=== PATIENT | male | born 1970 | race Caucasian/White ===

== ENCOUNTER 2016-12-29 15:36 | Inpatient (IN) | payer MEDICAID ==
[2016-12-29] MEDS ORDERED: Ondansetron 4 MG/2 ML SDV IV PRN (16:00)
[2016-12-29] MEDS ORDERED: Midazolam 1 MG/ML 2 ML SDV IVPUSH ONE (16:08)
[2016-12-29] MEDS: Morphine 2 MG/ML Syringe IVPUSH PRN ×2 (16:57→17:11)
[2016-12-29] MEDS ORDERED: Morphine 2 MG/ML Syringe IVPUSH ONE (17:10)
[2016-12-29] MEDS: Sodium Chloride 0.9% 10 ML Syringe FLUSH PRN ×3 (17:15→18:00)
--- NOTE | 2016-12-29 17:16 | PCM.OPNOTE ---
- General Post-Op/Procedure Note Date of Surgery/Procedure: 12/29/16 Operative Procedure(s): chest tube insertion right side Findings: 32 fr chest tube inserted without difficulty Pre Op Diagnosis: spontaneous pneumothorax right Post-Op Diagnosis: Same Anesthesia Technique: Local (10 ml 1 % lido with epi) Primary Surgeon: Shashi Keller Complications: None Condition: Good Free Text/Narrative:: see dictation #[id number]
[2016-12-29] MEDS: Ketorolac 30 MG/ML SDV IVPUSH SCH (17:32)
[2016-12-29] MEDS: HYDROmorphone 2 MG/ML SDV IVPUSH PRN ×2 (17:58→21:18)
[2016-12-30] MEDS: Ketorolac 30 MG/ML SDV IVPUSH SCH ×2 (00:44→10:38)
[2016-12-30] MEDS: Sodium Chloride 0.9% 10 ML Syringe FLUSH PRN ×6 (00:47→16:58)
--- NOTE | 2016-12-30 01:14 | PREOP ---
ADMISSION DATE: 12/29/2016 CHIEF COMPLAINT: Some chest discomfort on the right side. HISTORY OF PRESENT ILLNESS: This is a 46-year-old white male who developed some chest discomfort on the right side about a week ago, has had some shortness of breath as he feels like he has been jogging to the car to get things at lunchtime. He states that the pain is in the chest and does have some pain in the back as well, feels like he cannot quite get his breath. Denies any fever, chills, or coughing. On workup in the clinic today, he was noted to have a pneumothorax on the right side with collapse of at least 50%. He is being admitted for chest tube placement and expansion of the lung. SOCIAL HISTORY: The patient is , has five sons, and is employed. He denies any smoking or drinking history. PAST MEDICAL HISTORY: Significant only for hernia repair. MEDICATIONS: He is on no medications. ALLERGIES: He has no known drug allergies. REVIEW OF SYSTEMS: CONSTITUTIONAL: Negative. HEENT: Negative. CHEST: Positive for shortness of breath and some chest discomfort. ABDOMEN: Negative. NEUROLOGIC and SKIN: Negative. PHYSICAL EXAMINATION: GENERAL: This is a well-developed and well-nourished white male, appearing in no acute distress. HEENT: Reveals him to be normocephalic and atraumatic. Pupils are equal and reactive. Oropharynx is clear. LUNGS: Decreased breath sounds on the right especially in the upper field; otherwise, clear to auscultation. HEART: Regular rate and rhythm. ABDOMEN: Soft and nontender. IMAGING DATA: Chest x-ray was reviewed which reveals spontaneous pneumothorax on the right. ASSESSMENT: Spontaneous pneumo. PLAN: Chest tube placement. Procedure and risks explained to the patient, to include bleeding, infection, need for further surgical intervention as well as additional chest tube placement. The patient expresses understanding and he asked us to proceed. /[id number] /MODL
--- NOTE | 2016-12-30 02:28 | OR ---
DATE OF OPERATION: 12/29/2016 SURGEON: Shashi Keller MD PROCEDURE PERFORMED: Right chest tube insertion. PREOPERATIVE DIAGNOSIS: Right spontaneous pneumothorax. POSTOPERATIVE DIAGNOSIS: Right spontaneous pneumothorax. INDICATIONS FOR PROCEDURE: This is a 46-year-old white male, who presented to the clinic earlier today with complaint of some chest discomfort. Subsequent workup revealed approximately 50% of spontaneous pneumothorax. The patient was admitted and a chest tube is to be inserted. DESCRIPTION OF OPERATION: After approximately 1 mg of Versed and 2 mg of morphine were administered, he was prepped and draped in usual sterile manner a spot in the 4th intercostal space just lateral to the right nipple was identified. This was infiltrated with 10 mL with 1% lidocaine with epinephrine. A small incision was then made and the chest was entered both of the rib. After digital palpation to insure that there was no adhesions, a 32-Wolof chest tube was inserted and then sutured into place. The system was hooked up to 20 cm of water suction. The patient reports breathing much easier after the chest tube was placed and tolerated the procedure well. /[id number] /MODL
[2016-12-30] MEDS: Acetaminophen 325 MG Tab PO PRN (04:49)
[2016-12-30] MEDS: HYDROmorphone 2 MG/ML SDV IVPUSH PRN ×2 (05:43→15:55)
--- NOTE | 2016-12-30 10:20 | PCM.SURGPN ---
- General Info Date of Service: 12/30/16 Date of Surgery/Procedure: 12/29/16 POD#: 1 Functional Status: Reports: pain controlled, urinating, other - Review of Systems Pulmonary: Reports: other (some chest pain but is better ). Denies: shortness of breath Gastrointestinal: Reports: Nausea, Vomiting (feels is due to his pain medication ) - Patient Data Vitals - most recent: Last Vital Signs Temp 36.7 C 12/30/16 04:00 Pulse 68 12/30/16 04:00 Resp 18 12/30/16 04:00 BP 134/81 12/30/16 04:00 Pulse Ox 99 12/30/16 04:00 Weight - most recent: 80.785 kg I&O - last 24 hours: Intake & Output 12/29/16 12/30/16 12/30/16 22:59 06:59 14:59 Intake Total 575 700 Output Total 405 1020 Balance 170 -320 Med Orders - Current: Current Medications Acetaminophen (Tylenol) 650 mg PO Q4H PRN PRN Reason: Headache Last Admin: 12/30/16 04:49 Dose: 650 mg Hydromorphone HCl (Dilaudid) 2 mg IVPUSH Q3H PRN PRN Reason: Pain Last Admin: 12/30/16 05:43 Dose: 2 mg Ketorolac Tromethamine (Toradol) 30 mg IVPUSH Q8H [facility] Stop: 01/03/17 17:11 Last Admin: 12/30/16 00:44 Dose: 30 mg Ondansetron HCl (Zofran) 4 mg IV Q6H PRN PRN Reason: Nausea/Vomiting Sodium Chloride (Saline Flush) 10 ml FLUSH ASDIRECTED PRN PRN Reason: Keep Vein Open Last Admin: 12/30/16 08:05 Dose: 10 ml Discontinued Medications Midazolam HCl (Versed 1 Mg/Ml) 1 mg IVPUSH ONETIME ONE Stop: 12/29/16 16:09 Last Admin: 12/29/16 16:51 Dose: 1 mg Morphine Sulfate (Morphine) 2 mg IVPUSH Q2H PRN PRN Reason: Pain (severe 7-10) Last Admin: 12/29/16 17:11 Dose: 2 mg Morphine Sulfate (Morphine) 2 mg IVPUSH ONETIME ONE Stop: 12/29/16 17:11 Last Admin: 12/29/16 17:29 Dose: Not Given - Exam Wound/Incisions: dressing dry and intact General: alert, oriented, no acute distress Lungs: Clear to auscultation, Normal respiratory effort Cardiovascular: regular rate, regular rhythm - Problem List & Annotations (1) Spontaneous pneumothorax SNOMED Code(s): 96741959 Code(s): J93.83 - OTHER PNEUMOTHORAX Status: Acute Current Visit: Yes - Problem List Review Problem List Initiated/Reviewed/Updated: Yes - My Orders Last 24 Hours: Active Orders 24 hr Category Date Time Status Patient Status [ADT] Routine ADT 12/29/16 15:55 Active Chest Tube Management [RC] Q2H Care 12/29/16 17:12 Active IS (RT) [RT Incentive Spirometry] [RC] ASDIRECTED Care 12/30/16 08:30 Active Notify Provider Vital Signs [RC] ASDIRECTED Care 12/29/16 16:00 Active Oxygen Therapy [RC] CONTINUOUS Care 12/29/16 16:00 Active Up With Assistance [RC] ASDIRECTED Care 12/29/16 16:00 Active Vital Signs [RC] 04,08,12,16,20,00 Care 12/29/16 16:00 Active Regular Diet [DIET] Diet 12/29/16 Dinner Active CXR [Chest 1V Frontal] [CR] AM Exams 12/30/16 05:11 Taken Chest 1V Frontal [CR] Routine Exams 12/29/16 16:00 Taken Acetaminophen [Tylenol] Med 12/30/16 04:35 Active 650 mg PO Q4H PRN HYDROmorphone [Dilaudid] Med 12/29/16 17:26 Active 2 mg IVPUSH Q3H PRN Ketorolac [Toradol] Med 12/29/16 17:15 Active 30 mg IVPUSH Q8H Ondansetron [Zofran] Med 12/29/16 16:00 Active 4 mg IV Q6H PRN Sodium Chloride 0.9% [Saline Flush] Med 12/29/16 15:48 Active 10 ml FLUSH ASDIRECTED PRN Saline Lock Insert [OM.PC] Routine Oth 12/29/16 15:48 Ordered Sequential Compression Device [OM.PC] Per Unit Routine Oth 12/29/16 16:01 Ordered Resuscitation Status Routine Resus Stat 12/29/16 16:00 Ordered Medication Orders Acetaminophen (Tylenol) 650 mg PO Q4H PRN PRN Reason: Headache Last Admin: 12/30/16 04:49 Dose: 650 mg Hydromorphone HCl (Dilaudid) 2 mg IVPUSH Q3H PRN PRN Reason: Pain Last Admin: 12/30/16 05:43 Dose: 2 mg Admin: 12/29/16 21:18 Dose: 2 mg Admin: 12/29/16 17:58 Dose: 2 mg Ketorolac Tromethamine (Toradol) 30 mg IVPUSH Q8H [facility] Stop: 01/03/17 17:11 Last Admin: 12/30/16 00:44 Dose: 30 mg Admin: 12/29/16 17:32 Dose: 30 mg Ondansetron HCl (Zofran) 4 mg IV Q6H PRN PRN Reason: Nausea/Vomiting Sodium Chloride (Saline Flush) 10 ml FLUSH ASDIRECTED PRN PRN Reason: Keep Vein Open Last Admin: 12/30/16 08:05 Dose: 10 ml Admin: 12/30/16 05:44 Dose: 10 ml Admin: 12/30/16 00:47 Dose: 10 ml Admin: 12/29/16 18:00 Dose: 10 ml Admin: 12/29/16 17:33 Dose: 10 ml Admin: 12/29/16 17:15 Dose: 10 ml - Assessment Assessment (Free Text/Narrative):: Lung is up small air leak - Plan Plan (Free Text/Narrative):: Will increase suction to 40 cm of water continue current rx.
[2016-12-30] MEDS ORDERED: traMADol 50 MG Tab PO PRN ×2 (12:23→12:25)
--- NOTE | 2016-12-30 17:05 | CR ---
INDICATION: Chest tube insertion for pneumothorax on the right. CHEST: A single AP upright portable view of the chest was obtained revealing a chest tube on the right with almost complete reexpansion of the right lung. A small residual pneumothorax is suggested, but not well seen. There may be some pleural fibrosis. Some atelectatic change in the right upper lobe remains present. The left lung and pleural space were unremarkable, as previously. Relatively poor inspiration is noted to evaluate the pneumothorax to better advantage. IMPRESSION: Almost complete reexpansion of the right lung after chest tube insertion on the right. Some residual atelectasis and pneumothorax is suggested. Pneumothorax residual is minimal MTDD
--- NOTE | 2016-12-30 17:07 | CR ---
INDICATION: Follow-up pneumothorax. CHEST: Portable AP upright view of the chest 12/30/2016 was compared with 05/2017 examinations x2. There is noted a minimal residual pneumothorax on the right of approximately 5% with chest tube remaining in place. The appearance of atelectasis of a portion of the right upper lobe has resolved. At the left lower lung field, especially the left lung base, there are increased markings which may represent atelectasis. A linear density compatible with linear atelectasis is suggested in the left lower lobe specifically. Some congestion of the left lung may be present. The heart did not appear enlarged allowing for the portable AP positioning and poor inspiration. The poor inspiration is utilized to better visualize pneumothorax. IMPRESSION: 1. Residual 5% pneumothorax on the right. Lung otherwise well expanded on the right with right chest tube remaining in place. 2. Resolution of atelectatic changes in the right upper lobe. 3. Appearance of pulmonary vascular congestion left mid to lower lung field, possibly with some atelectasis at the left lower lobe. With next re-examination , would suggest a full inspiration PA and lateral view of the chest with a PA expiration view also. MTDD
--- NOTE | 2016-12-30 17:43 | PCM.SURGPN ---
- General Info Date of Service: 12/30/16 - Review of Systems Gastrointestinal: Reports: Nausea, Vomiting (has had several episodes during the day. ) - Patient Data Vitals - most recent: Last Vital Signs Temp 36.6 C 12/30/16 16:00 Pulse 71 12/30/16 16:00 Resp 16 12/30/16 16:00 BP 119/75 12/30/16 16:00 Pulse Ox 95 12/30/16 16:00 Weight - most recent: 80.785 kg I&O - last 24 hours: Intake & Output 12/30/16 12/30/16 12/30/16 06:59 14:59 22:59 Intake Total 700 Output Total 1020 2 Balance -320 -2 Med Orders - Current: Current Medications Acetaminophen (Tylenol) 650 mg PO Q4H PRN PRN Reason: Headache Last Admin: 12/30/16 04:49 Dose: 650 mg Hydromorphone HCl (Dilaudid) 2 mg IVPUSH Q3H PRN PRN Reason: Pain Last Admin: 12/30/16 15:55 Dose: 2 mg Ondansetron HCl (Zofran) 4 mg IV Q6H PRN PRN Reason: Nausea/Vomiting Last Admin: 12/30/16 11:16 Dose: 4 mg Sodium Chloride (Saline Flush) 10 ml FLUSH ASDIRECTED PRN PRN Reason: Keep Vein Open Last Admin: 12/30/16 16:58 Dose: 10 ml Tramadol HCl (Ultram) 50 mg PO Q4H PRN PRN Reason: Pain Last Admin: 12/30/16 14:26 Dose: 50 mg Tramadol HCl (Ultram) 100 mg PO Q4H PRN PRN Reason: Pain Discontinued Medications Ketorolac Tromethamine (Toradol) 30 mg IVPUSH Q8H [facility] Stop: 01/03/17 17:11 Last Admin: 12/30/16 10:38 Dose: 30 mg Midazolam HCl (Versed 1 Mg/Ml) 1 mg IVPUSH ONETIME ONE Stop: 12/29/16 16:09 Last Admin: 12/29/16 16:51 Dose: 1 mg Morphine Sulfate (Morphine) 2 mg IVPUSH Q2H PRN PRN Reason: Pain (severe 7-10) Last Admin: 12/29/16 17:11 Dose: 2 mg Morphine Sulfate (Morphine) 2 mg IVPUSH ONETIME ONE Stop: 12/29/16 17:11 Last Admin: 12/29/16 17:29 Dose: Not Given - Exam Wound/Incisions: dressing dry and intact Lungs: Clear to auscultation, Normal respiratory effort Cardiovascular: regular rate, regular rhythm Abdomen: bowel sounds present, no tenderness, no distension - Problem List & Annotations (1) Spontaneous pneumothorax SNOMED Code(s): 16416223 Code(s): J93.83 - OTHER PNEUMOTHORAX Status: Acute Current Visit: Yes (2) Emesis, persistent SNOMED Code(s): 821612695 Code(s): R11.10 - VOMITING, UNSPECIFIED Status: Acute Current Visit: Yes - Problem List Review Problem List Initiated/Reviewed/Updated: Yes - My Orders Last 24 Hours: Active Orders 24 hr Category Date Time Status Chest Tube Management [RC] Q2H Care 12/29/16 17:12 Active IS (RT) [RT Incentive Spirometry] [RC] ASDIRECTED Care 12/30/16 08:30 Active Acetaminophen [Tylenol] Med 12/30/16 04:35 Active 650 mg PO Q4H PRN HYDROmorphone [Dilaudid] Med 12/29/16 17:26 Active 2 mg IVPUSH Q3H PRN traMADol [Ultram] Med 12/30/16 12:25 Active 100 mg PO Q4H PRN traMADol [Ultram] Med 12/30/16 12:23 Active 50 mg PO Q4H PRN Medication Orders Acetaminophen (Tylenol) 650 mg PO Q4H PRN PRN Reason: Headache Last Admin: 12/30/16 04:49 Dose: 650 mg Hydromorphone HCl (Dilaudid) 2 mg IVPUSH Q3H PRN PRN Reason: Pain Last Admin: 12/30/16 15:55 Dose: 2 mg Admin: 12/30/16 05:43 Dose: 2 mg Admin: 12/29/16 21:18 Dose: 2 mg Admin: 12/29/16 17:58 Dose: 2 mg Ondansetron HCl (Zofran) 4 mg IV Q6H PRN PRN Reason: Nausea/Vomiting Last Admin: 12/30/16 11:16 Dose: 4 mg Sodium Chloride (Saline Flush) 10 ml FLUSH ASDIRECTED PRN PRN Reason: Keep Vein Open Last Admin: 12/30/16 16:58 Dose: 10 ml Admin: 12/30/16 15:56 Dose: 10 ml Admin: 12/30/16 11:20 Dose: 10 ml Admin: 12/30/16 08:05 Dose: 10 ml Admin: 12/30/16 05:44 Dose: 10 ml Admin: 12/30/16 00:47 Dose: 10 ml Admin: 12/29/16 18:00 Dose: 10 ml Admin: 12/29/16 17:33 Dose: 10 ml Admin: 12/29/16 17:15 Dose: 10 ml Tramadol HCl (Ultram) 50 mg PO Q4H PRN PRN Reason: Pain Last Admin: 12/30/16 14:26 Dose: 50 mg Tramadol HCl (Ultram) 100 mg PO Q4H PRN PRN Reason: Pain - Assessment Assessment (Free Text/Narrative):: emesis is most likely from narcs as well as stress. - Plan Plan (Free Text/Narrative):: I am going to make npo tonight. Start a ppi.
[2016-12-30] MEDS ORDERED: Pantoprazole 80 MG in Sodium Chloride 0.9% 100 ML IV ONE (17:46)
[2016-12-30] MEDS: D5 1/2 NS w/ 20 mEq/L KCl 1,000 ML IV SCH (18:08)
[2016-12-30] MEDS: Morphine 2 MG/ML Syringe IVPUSH PRN (20:22)
[2016-12-31] MEDS: Morphine 2 MG/ML Syringe IVPUSH PRN ×9 (00:22→17:38)
[2016-12-31] MEDS: D5 1/2 NS w/ 20 mEq/L KCl 1,000 ML IV SCH ×3 (02:43→19:17)
--- NOTE | 2016-12-31 09:38 | PCM.SURGPN ---
- General Info Date of Service: 12/31/16 POD#: 2 Functional Status: Reports: pain controlled, urinating, incentive spirometry - Review of Systems Pulmonary: Reports: no symptoms Gastrointestinal: Reports: No symptoms. Denies: Abdominal pain, Nausea, Vomiting - Patient Data Vitals - most recent: Last Vital Signs Temp 36.9 C 12/31/16 04:30 Pulse 60 12/31/16 04:30 Resp 18 12/31/16 04:30 BP 126/74 12/31/16 04:30 Pulse Ox 95 12/31/16 04:30 Weight - most recent: 80.785 kg I&O - last 24 hours: Intake & Output 12/30/16 12/31/16 12/31/16 22:59 06:59 14:59 Intake Total 459 932 Output Total 85 1355 Balance 374 -423 Med Orders - Current: Current Medications Acetaminophen (Tylenol) 650 mg PO Q4H PRN PRN Reason: Headache Last Admin: 12/30/16 04:49 Dose: 650 mg Potassium Chloride/Dextrose/Sod Cl (D5 1/2 Ns W/ 20 Meq/L Kcl) 1,000 mls @ 125 mls/hr IV ASDIRECTED [facility] Last Admin: 12/31/16 02:43 Dose: 125 mls/hr Morphine Sulfate (Morphine) 1 mg IVPUSH Q1H PRN PRN Reason: Pain Last Admin: 12/31/16 08:36 Dose: 1 mg Ondansetron HCl (Zofran) 4 mg IV Q6H PRN PRN Reason: Nausea/Vomiting Last Admin: 12/30/16 11:16 Dose: 4 mg Discontinued Medications Hydromorphone HCl (Dilaudid) 2 mg IVPUSH Q3H PRN PRN Reason: Pain Last Admin: 12/30/16 15:55 Dose: 2 mg Pantoprazole Sodium 80 mg/ (Sodium Chloride) 100 mls @ 200 mls/hr IV .BOLUS ONE Stop: 12/30/16 18:15 Last Admin: 12/30/16 18:23 Dose: 200 mls/hr Ketorolac Tromethamine (Toradol) 30 mg IVPUSH Q8H [facility] Stop: 01/03/17 17:11 Last Admin: 12/30/16 10:38 Dose: 30 mg Midazolam HCl (Versed 1 Mg/Ml) 1 mg IVPUSH ONETIME ONE Stop: 12/29/16 16:09 Last Admin: 12/29/16 16:51 Dose: 1 mg Morphine Sulfate (Morphine) 2 mg IVPUSH Q2H PRN PRN Reason: Pain (severe 7-10) Last Admin: 12/29/16 17:11 Dose: 2 mg Morphine Sulfate (Morphine) 2 mg IVPUSH ONETIME ONE Stop: 12/29/16 17:11 Last Admin: 12/29/16 17:29 Dose: Not Given Sodium Chloride (Saline Flush) 10 ml FLUSH ASDIRECTED PRN PRN Reason: Keep Vein Open Last Admin: 12/30/16 16:58 Dose: 10 ml Tramadol HCl (Ultram) 50 mg PO Q4H PRN PRN Reason: Pain Last Admin: 12/30/16 14:26 Dose: 50 mg Tramadol HCl (Ultram) 100 mg PO Q4H PRN PRN Reason: Pain - Exam Wound/Incisions: dressing dry and intact Lungs: Clear to auscultation, Normal respiratory effort Cardiovascular: regular rate, regular rhythm Abdomen: bowel sounds present, soft, no tenderness - Problem List & Annotations (1) Spontaneous pneumothorax SNOMED Code(s): 04768901 Code(s): J93.83 - OTHER PNEUMOTHORAX Status: Acute Current Visit: Yes (2) Emesis, persistent SNOMED Code(s): 583919166 Code(s): R11.10 - VOMITING, UNSPECIFIED Status: Acute Current Visit: Yes - Problem List Review Problem List Initiated/Reviewed/Updated: Yes - My Orders Last 24 Hours: Active Orders 24 hr Category Date Time Status D5 1/2 NS w/ 20 mEq/L KCl 1,000 ml Med 12/30/16 17:45 Active IV ASDIRECTED Morphine Med 12/30/16 17:47 Active 1 mg IVPUSH Q1H PRN Medication Orders Acetaminophen (Tylenol) 650 mg PO Q4H PRN PRN Reason: Headache Last Admin: 12/30/16 04:49 Dose: 650 mg Potassium Chloride/Dextrose/Sod Cl (D5 1/2 Ns W/ 20 Meq/L Kcl) 1,000 mls @ 125 mls/hr IV ASDIRECTED [facility] Last Admin: 12/31/16 02:43 Dose: 125 mls/hr Infusion: 12/31/16 02:08 Dose: 125 mls/hr Admin: 12/30/16 18:08 Dose: 125 mls/hr Morphine Sulfate (Morphine) 1 mg IVPUSH Q1H PRN PRN Reason: Pain Last Admin: 12/31/16 08:36 Dose: 1 mg Admin: 12/31/16 07:02 Dose: 1 mg Admin: 12/31/16 04:45 Dose: 1 mg Admin: 12/31/16 03:03 Dose: 1 mg Admin: 12/31/16 00:22 Dose: 1 mg Admin: 12/30/16 20:22 Dose: 1 mg Ondansetron HCl (Zofran) 4 mg IV Q6H PRN PRN Reason: Nausea/Vomiting Last Admin: 12/30/16 11:16 Dose: 4 mg - Assessment Assessment (Free Text/Narrative):: will change to water seal as he appears to have no air leak and lung sounds are present abd exam is better will allow clears. - Plan Plan (Free Text/Narrative):: ct to water seal clear liquid diet cxr this afternoon
[2017-01-01] MEDS: D5 1/2 NS w/ 20 mEq/L KCl 1,000 ML IV SCH ×2 (02:47→10:58)
[2017-01-01] MEDS: Acetaminophen 325 MG Tab PO PRN (08:48)
[2017-01-01] MEDS: Morphine 2 MG/ML Syringe IVPUSH PRN (09:45)
--- NOTE | 2017-01-01 10:23 | PCM.SURGPN ---
- General Info Date of Service: 01/01/17 Functional Status: Reports: pain controlled, ambulating, urinating, new symptoms - Review of Systems Pulmonary: Reports: no symptoms Cardiovascular: Reports: no symptoms Gastrointestinal: Reports: No symptoms - Patient Data Vitals - most recent: Last Vital Signs Temp 37.1 C 01/01/17 04:00 Pulse 68 01/01/17 04:00 Resp 16 01/01/17 04:00 BP 105/64 01/01/17 04:00 Pulse Ox 97 01/01/17 04:00 Weight - most recent: 80.785 kg I&O - last 24 hours: Intake & Output 12/31/16 01/01/17 01/01/17 22:59 06:59 14:59 Intake Total 2239 1120 220 Output Total 253 432 Balance 1986 688 220 Med Orders - Current: Current Medications Acetaminophen (Tylenol) 650 mg PO Q4H PRN PRN Reason: Headache Last Admin: 01/01/17 08:48 Dose: 650 mg Potassium Chloride/Dextrose/Sod Cl (D5 1/2 Ns W/ 20 Meq/L Kcl) 1,000 mls @ 125 mls/hr IV Q8H [facility] Last Admin: 01/01/17 02:47 Dose: 125 mls/hr Morphine Sulfate (Morphine) 1 mg IVPUSH Q1H PRN PRN Reason: Pain Last Admin: 12/31/16 17:38 Dose: 1 mg Ondansetron HCl (Zofran) 4 mg IV Q6H PRN PRN Reason: Nausea/Vomiting Last Admin: 12/30/16 11:16 Dose: 4 mg Discontinued Medications Hydromorphone HCl (Dilaudid) 2 mg IVPUSH Q3H PRN PRN Reason: Pain Last Admin: 12/30/16 15:55 Dose: 2 mg Potassium Chloride/Dextrose/Sod Cl (D5 1/2 Ns W/ 20 Meq/L Kcl) 1,000 mls @ 125 mls/hr IV ASDIRECTED [facility] Last Admin: 12/31/16 02:43 Dose: 125 mls/hr Pantoprazole Sodium 80 mg/ (Sodium Chloride) 100 mls @ 200 mls/hr IV .BOLUS ONE Stop: 12/30/16 18:15 Last Admin: 12/30/16 18:23 Dose: 200 mls/hr Ketorolac Tromethamine (Toradol) 30 mg IVPUSH Q8H [facility] Stop: 01/03/17 17:11 Last Admin: 12/30/16 10:38 Dose: 30 mg Midazolam HCl (Versed 1 Mg/Ml) 1 mg IVPUSH ONETIME ONE Stop: 12/29/16 16:09 Last Admin: 12/29/16 16:51 Dose: 1 mg Morphine Sulfate (Morphine) 2 mg IVPUSH Q2H PRN PRN Reason: Pain (severe 7-10) Last Admin: 12/29/16 17:11 Dose: 2 mg Morphine Sulfate (Morphine) 2 mg IVPUSH ONETIME ONE Stop: 12/29/16 17:11 Last Admin: 12/29/16 17:29 Dose: Not Given Sodium Chloride (Saline Flush) 10 ml FLUSH ASDIRECTED PRN PRN Reason: Keep Vein Open Last Admin: 12/30/16 16:58 Dose: 10 ml Tramadol HCl (Ultram) 50 mg PO Q4H PRN PRN Reason: Pain Last Admin: 12/30/16 14:26 Dose: 50 mg Tramadol HCl (Ultram) 100 mg PO Q4H PRN PRN Reason: Pain - Exam Wound/Incisions: dressing dry and intact Lungs: Clear to auscultation, Normal respiratory effort, Other (cxr lung up ) Cardiovascular: regular rate, regular rhythm Skin: warm, dry, intact - Problem List & Annotations (1) Spontaneous pneumothorax SNOMED Code(s): 45025719 Code(s): J93.83 - OTHER PNEUMOTHORAX Status: Resolved Current Visit: Yes (2) Emesis, persistent SNOMED Code(s): 042982564 Code(s): R11.10 - VOMITING, UNSPECIFIED Status: Resolved Current Visit: Yes - Problem List Review Problem List Initiated/Reviewed/Updated: Yes - My Orders Last 24 Hours: Active Orders 24 hr Category Date Time Status Clear Liquid Diet [DIET] Diet 12/31/16 Lunch Active CXR [Chest 1V Frontal] [CR] Routine Exams 01/01/17 08:00 Taken CXR [Chest 2V] [CR] Routine Exams 12/31/16 16:30 Taken Chest 1V Frontal [CR] Routine Exams 01/01/17 09:53 Taken D5 1/2 NS w/ 20 mEq/L KCl 1,000 ml Med 12/31/16 10:45 Active IV Q8H Medication Orders Acetaminophen (Tylenol) 650 mg PO Q4H PRN PRN Reason: Headache Last Admin: 01/01/17 08:48 Dose: 650 mg Admin: 12/30/16 04:49 Dose: 650 mg Potassium Chloride/Dextrose/Sod Cl (D5 1/2 Ns W/ 20 Meq/L Kcl) 1,000 mls @ 125 mls/hr IV Q8H [facility] Last Admin: 01/01/17 02:47 Dose: 125 mls/hr Infusion: 01/01/17 02:47 Dose: 125 mls/hr Admin: 12/31/16 19:17 Dose: 125 mls/hr Infusion: 12/31/16 18:40 Dose: 125 mls/hr Admin: 12/31/16 10:40 Dose: 125 mls/hr Morphine Sulfate (Morphine) 1 mg IVPUSH Q1H PRN PRN Reason: Pain Last Admin: 12/31/16 17:38 Dose: 1 mg Admin: 12/31/16 15:20 Dose: 1 mg Admin: 12/31/16 12:53 Dose: 1 mg Admin: 12/31/16 10:27 Dose: 1 mg Admin: 12/31/16 08:36 Dose: 1 mg Admin: 12/31/16 07:02 Dose: 1 mg Admin: 12/31/16 04:45 Dose: 1 mg Admin: 12/31/16 03:03 Dose: 1 mg Admin: 12/31/16 00:22 Dose: 1 mg Admin: 12/30/16 20:22 Dose: 1 mg Ondansetron HCl (Zofran) 4 mg IV Q6H PRN PRN Reason: Nausea/Vomiting Last Admin: 12/30/16 11:16 Dose: 4 mg - Assessment Assessment (Free Text/Narrative):: lung was up and ct was removed post removal demonstrated lung up breath sounds present. - Plan Plan (Free Text/Narrative):: repeat cxr in am if lung up will discharge to home
--- NOTE | 2017-01-02 09:07 | PCM.SURGPN ---
- General Info Date of Service: 01/02/17 Functional Status: Reports: pain controlled, tolerating diet, ambulating, urinating. Denies: new symptoms - Review of Systems Pulmonary: Reports: no symptoms Cardiovascular: Reports: no symptoms Gastrointestinal: Reports: No symptoms - Patient Data Vitals - most recent: Last Vital Signs Temp 36.9 C 01/02/17 00:00 Pulse 75 01/02/17 00:00 Resp 16 01/02/17 00:00 BP 124/78 01/02/17 00:00 Pulse Ox 96 01/02/17 00:00 Weight - most recent: 80.785 kg I&O - last 24 hours: Intake & Output 01/01/17 01/02/17 01/02/17 21:59 06:59 14:59 Intake Total Balance Med Orders - Current: Current Medications Acetaminophen (Tylenol) 650 mg PO Q4H PRN PRN Reason: Headache Last Admin: 01/01/17 08:48 Dose: 650 mg Morphine Sulfate (Morphine) 1 mg IVPUSH Q1H PRN PRN Reason: Pain Last Admin: 01/01/17 09:45 Dose: 1 mg Ondansetron HCl (Zofran) 4 mg IV Q6H PRN PRN Reason: Nausea/Vomiting Last Admin: 12/30/16 11:16 Dose: 4 mg Discontinued Medications Hydromorphone HCl (Dilaudid) 2 mg IVPUSH Q3H PRN PRN Reason: Pain Last Admin: 12/30/16 15:55 Dose: 2 mg Potassium Chloride/Dextrose/Sod Cl (D5 1/2 Ns W/ 20 Meq/L Kcl) 1,000 mls @ 125 mls/hr IV ASDIRECTED [facility] Last Admin: 12/31/16 02:43 Dose: 125 mls/hr Pantoprazole Sodium 80 mg/ (Sodium Chloride) 100 mls @ 200 mls/hr IV .BOLUS ONE Stop: 12/30/16 18:15 Last Admin: 12/30/16 18:23 Dose: 200 mls/hr Potassium Chloride/Dextrose/Sod Cl (D5 1/2 Ns W/ 20 Meq/L Kcl) 1,000 mls @ 125 mls/hr IV Q8H [facility] Last Admin: 01/01/17 10:58 Dose: Not Given Ketorolac Tromethamine (Toradol) 30 mg IVPUSH Q8H [facility] Stop: 01/03/17 17:11 Last Admin: 12/30/16 10:38 Dose: 30 mg Midazolam HCl (Versed 1 Mg/Ml) 1 mg IVPUSH ONETIME ONE Stop: 12/29/16 16:09 Last Admin: 12/29/16 16:51 Dose: 1 mg Morphine Sulfate (Morphine) 2 mg IVPUSH Q2H PRN PRN Reason: Pain (severe 7-10) Last Admin: 12/29/16 17:11 Dose: 2 mg Morphine Sulfate (Morphine) 2 mg IVPUSH ONETIME ONE Stop: 12/29/16 17:11 Last Admin: 12/29/16 17:29 Dose: Not Given Sodium Chloride (Saline Flush) 10 ml FLUSH ASDIRECTED PRN PRN Reason: Keep Vein Open Last Admin: 12/30/16 16:58 Dose: 10 ml Tramadol HCl (Ultram) 50 mg PO Q4H PRN PRN Reason: Pain Last Admin: 12/30/16 14:26 Dose: 50 mg Tramadol HCl (Ultram) 100 mg PO Q4H PRN PRN Reason: Pain - Exam Wound/Incisions: dressing dry and intact Lungs: Clear to auscultation, Normal respiratory effort. No: Decreased breath sounds - Problem List & Annotations (1) Spontaneous pneumothorax SNOMED Code(s): 82669082 Code(s): J93.83 - OTHER PNEUMOTHORAX Status: Resolved Current Visit: Yes (2) Emesis, persistent SNOMED Code(s): 467240827 Code(s): R11.10 - VOMITING, UNSPECIFIED Status: Resolved Current Visit: Yes - Problem List Review Problem List Initiated/Reviewed/Updated: Yes - My Orders Last 24 Hours: Active Orders 24 hr Category Date Time Status Regular Diet [DIET] Diet 01/01/17 Lunch Active CXR [Chest 1V Frontal] [CR] AM Exams 01/02/17 05:11 Ordered CXR [Chest 1V Frontal] [CR] Routine Exams 01/01/17 08:00 Taken Chest 1V Frontal [CR] Routine Exams 01/01/17 09:53 Taken Convert IV to Saline Lock [OM.PC] Routine Oth 01/01/17 10:23 Ordered Medication Orders Acetaminophen (Tylenol) 650 mg PO Q4H PRN PRN Reason: Headache Last Admin: 01/01/17 08:48 Dose: 650 mg Admin: 12/30/16 04:49 Dose: 650 mg Morphine Sulfate (Morphine) 1 mg IVPUSH Q1H PRN PRN Reason: Pain Last Admin: 01/01/17 09:45 Dose: 1 mg Admin: 12/31/16 17:38 Dose: 1 mg Admin: 12/31/16 15:20 Dose: 1 mg Admin: 12/31/16 12:53 Dose: 1 mg Admin: 12/31/16 10:27 Dose: 1 mg Admin: 12/31/16 08:36 Dose: 1 mg Admin: 12/31/16 07:02 Dose: 1 mg Admin: 12/31/16 04:45 Dose: 1 mg Admin: 12/31/16 03:03 Dose: 1 mg Admin: 12/31/16 00:22 Dose: 1 mg Admin: 12/30/16 20:22 Dose: 1 mg Ondansetron HCl (Zofran) 4 mg IV Q6H PRN PRN Reason: Nausea/Vomiting Last Admin: 12/30/16 11:16 Dose: 4 mg - Assessment Assessment (Free Text/Narrative):: clinically doing well - Plan Plan (Free Text/Narrative):: await the am cxr anticipate discharge this am.
--- NOTE | 2017-01-02 09:12 | PCM.DCSUM1 ---
Discharge Summary - Hospital Course Free Text/Narrative:: Pt admitted through the clinic and had a chest tube placed in the right chest. Lung demonstrated good expansion. Placed on water seal on HOD #2 Lung remained expanded and chest tube was removed. cxr on the day of discharge was normal with the lung up - Discharge Data Discharge Date: 01/02/17 Discharge Disposition: Home, Self-Care 01 Condition: Good - Discharge Diagnosis/Problem(s) (1) Spontaneous pneumothorax SNOMED Code(s): 94045536 ICD Code: J93.83 - OTHER PNEUMOTHORAX Status: Resolved Current Visit: Yes (2) Emesis, persistent SNOMED Code(s): 474047515 ICD Code: R11.10 - VOMITING, UNSPECIFIED Status: Resolved Current Visit: Yes - Patient Summary/Data Operative Procedure(s) Performed: chest tube insertion right side - Patient Instructions Diet: Heart Healthy Diet Activity: No Lifting Over 25 Pounds (for 7 days ) Driving: Do Not Drive (for 2 days ) Showering/Bathing: February Shower Wound/Incision, Other: dressing off in am . may shower. cover wound with bandaid Notify Provider of: Fever, Drainage Other/Special Instructions: shortness of breath - Discharge Plan Home Medications: Home Meds Multivitamin [Multivitamins] 1 each PO DAILY 12/29/16 [History] Referrals: Shashi Keller MD [Physician] - 01/10/17 - Discharge Summary/Plan Comment DC Time >30 min.: No Discharge Summary/Plan Comment: Motrin for pain - Patient Data Vitals - Most Recent: Last Vital Signs Temp 36.9 C 01/02/17 00:00 Pulse 75 01/02/17 00:00 Resp 16 01/02/17 00:00 BP 124/78 01/02/17 00:00 Pulse Ox 96 01/02/17 00:00 Weight - Most Recent: 80.785 kg I&O - Last 24 hours: Intake & Output 01/01/17 01/02/17 01/02/17 21:59 06:59 14:59 Intake Total Balance Med Orders - Current: Current Medications Acetaminophen (Tylenol) 650 mg PO Q4H PRN PRN Reason: Headache Last Admin: 01/01/17 08:48 Dose: 650 mg Morphine Sulfate (Morphine) 1 mg IVPUSH Q1H PRN PRN Reason: Pain Last Admin: 01/01/17 09:45 Dose: 1 mg Ondansetron HCl (Zofran) 4 mg IV Q6H PRN PRN Reason: Nausea/Vomiting Last Admin: 12/30/16 11:16 Dose: 4 mg Discontinued Medications Hydromorphone HCl (Dilaudid) 2 mg IVPUSH Q3H PRN PRN Reason: Pain Last Admin: 12/30/16 15:55 Dose: 2 mg Potassium Chloride/Dextrose/Sod Cl (D5 1/2 Ns W/ 20 Meq/L Kcl) 1,000 mls @ 125 mls/hr IV ASDIRECTED [facility] Last Admin: 12/31/16 02:43 Dose: 125 mls/hr Pantoprazole Sodium 80 mg/ (Sodium Chloride) 100 mls @ 200 mls/hr IV .BOLUS ONE Stop: 12/30/16 18:15 Last Admin: 12/30/16 18:23 Dose: 200 mls/hr Potassium Chloride/Dextrose/Sod Cl (D5 1/2 Ns W/ 20 Meq/L Kcl) 1,000 mls @ 125 mls/hr IV Q8H [facility] Last Admin: 01/01/17 10:58 Dose: Not Given Ketorolac Tromethamine (Toradol) 30 mg IVPUSH Q8H [facility] Stop: 01/03/17 17:11 Last Admin: 12/30/16 10:38 Dose: 30 mg Midazolam HCl (Versed 1 Mg/Ml) 1 mg IVPUSH ONETIME ONE Stop: 12/29/16 16:09 Last Admin: 12/29/16 16:51 Dose: 1 mg Morphine Sulfate (Morphine) 2 mg IVPUSH Q2H PRN PRN Reason: Pain (severe 7-10) Last Admin: 12/29/16 17:11 Dose: 2 mg Morphine Sulfate (Morphine) 2 mg IVPUSH ONETIME ONE Stop: 12/29/16 17:11 Last Admin: 12/29/16 17:29 Dose: Not Given Sodium Chloride (Saline Flush) 10 ml FLUSH ASDIRECTED PRN PRN Reason: Keep Vein Open Last Admin: 12/30/16 16:58 Dose: 10 ml Tramadol HCl (Ultram) 50 mg PO Q4H PRN PRN Reason: Pain Last Admin: 12/30/16 14:26 Dose: 50 mg Tramadol HCl (Ultram) 100 mg PO Q4H PRN PRN Reason: Pain *Q Meaningful Use (DIS) - VTE *Q VTE Criteria *Q: - Stroke *Q Stroke Criteria *Q: - AMI *Q AMI Criteria *Q:
[2017-01-02 11:18] VITALS: BP 122/88
--- NOTE | 2017-01-03 08:37 | CR ---
INDICATION: Check lung expansion after being on water seal. CHEST: PA and lateral views of the chest 12/31/2016 were compared with 2016 and 12/29/2016, again revealing a right chest tube in place. A small - 5% pneumothorax remains present and stable, compared with 12/30/2016. A new acute process is not definite, although there is blunting of the posterior sulcus on the right, suggesting some pleural fluid. The appearance could be secondary to fibrosis, however. The heart appeared normal in size and shape. The aorta is only slightly tortuous. IMPRESSION: 1) 5% residual pneumothorax remains present with right chest tube in place. 2) Question small right pleural effusion versus some scarring at the posterior sulcus. 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 MTDD
--- NOTE | 2017-01-03 12:03 | CR ---
INDICATION: Follow-up pneumothorax prior to chest tube removal. CHEST: 01/01/2017 at 0928 hours. A single frontal view of the chest was obtained upright, apparently PA, with a chest tube remaining in place on the right. A residual 5-10% pneumothorax remains present and appears unchanged from the previous examination. No significant change or new acute process was identified. Findings compatible with COPD are again noted. The heart remains normal in size and shape. IMPRESSION: Stable chest, no new acute process. Small pneumothorax remains present on the right with right chest tube in place. MTDD
--- NOTE | 2017-01-03 12:07 | CR ---
INDICATION: Post-chest tube removal. Follow-up pneumothorax. CHEST: A single frontal view of the chest was obtained after right chest tube removal and shows no change in the minimal pneumothorax seen previously. No new acute process was identified. MTDD
--- NOTE | 2017-01-03 12:10 | CR ---
INDICATION: Recheck lung expansion post chest tube removal. CHEST: (01/02/2017) PA view of the chest was obtained and revealed a tiny residual pneumothorax on the right. No new acute process was identified. The size of the pneumothorax on the right may be slightly decreased compared with the previous study. However, a better inspiration is also suggested, which would diminish the appearance of the pneumothorax. IMPRESSION: Stable chest. No new acute process. Very minimal residual pneumothorax on the right post right chest tube removal. MTDD
== END 2017-01-02 12:35 | disposition home or self-care (01) | DRG 201 ==
LOC: FB.MS 15:52
PROVIDERS: ADMIT Surgery; ATTEND Family Medicine
PROC: 0W9930Z Drainage of Right Pleural Cavity with Drainage Device, Percutaneous Approach (ICD-10-PCS; principal; 2016-12-29)
DX: J93.83 Other pneumothorax (principal); R11.10 Vomiting, unspecified
CPT/HCPCS: 32551; 71010; 71020; 94150; A9270-GY; C9113; J1170; J1885; J2250; J2270; J2405; J3480; J7030; J7050

== ENCOUNTER 2017-12-14 06:36 | Observation (INO) | payer MEDICAID ==
--- NOTE | 2017-12-14 07:48 | EDM.PDOC ---
ED HPI GENERAL MEDICAL PROBLEM - General Chief Complaint: Respiratory Problem Stated Complaint: back and right anterior chest discomfort Time Seen by Provider: 12/14/17 06:50 Source of Information: Reports: Patient History Limitations: Reports: No Limitations - History of Present Illness INITIAL COMMENTS - FREE TEXT/NARRATIVE: 46 y.o.w.m came to the ed by himself due to sudden onset of left sided chest discomfort while at work. Pt has a pneumothorax 1 year ago when a chest tube was placed. Pt was admitted for 3 days at that time. Pt quit smoking 18 years ago, his cousin had similar symptoms. No N/V/D or any other acute medical issues. BP 125/79 RR 20 Pulse ox 99% on RA Temp 37.4 Onset: Today Onset Date: 12/14/17 Onset Time: 07:00 Duration: Intermittent Location: Reports: Chest Quality: Reports: Ache Severity: Mild Improves with: Reports: Rest Worsens with: Reports: Movement Context: Reports: Other (spontaneous) Associated Symptoms: Reports: No Other Symptoms Back Pain Score (Numeric/FACES): 2 - Related Data Allergies Allergy/AdvReac Type Severity Reaction Status Date / Time No Known Allergies Allergy Verified 12/14/17 07:43 Home Meds: Home Meds Multivitamin [Multivitamins] 1 each PO DAILY 12/29/16 [History] Past Medical History Dermatologic History: Reports: Eczema - Infectious Disease History Infectious Disease History: Reports: Mononucleosis - Past Surgical History Respiratory Surgical History: Reports: Other (See Below) Other Respiratory Surgeries/Procedures: Past history of chest tube placement. Neurological Surgical History: Reports: Other (See Below) Other Neurological Surgeries/Procedures: Past history of head surgery after being kicked by a horse. Social & Family History - Family History Family Medical History: Noncontributory - Tobacco Use Smoking Status *Q: Former Smoker Years of Tobacco use: 10 Used Tobacco, but Quit: No Second Hand Smoke Exposure: No - Caffeine Use Caffeine Use: Reports: Coffee Other Caffeine Use: daily cup - Recreational Drug Use Recreational Drug Use: No ED ROS GENERAL - Review of Systems Review Of Systems: See Below Constitutional: Reports: No Symptoms HEENT: Reports: No Symptoms Respiratory: Reports: No Symptoms Cardiovascular: Reports: Chest Pain (minimal) Endocrine: Reports: No Symptoms GI/Abdominal: Reports: No Symptoms : Reports: No Symptoms Musculoskeletal: Reports: No Symptoms Skin: Reports: No Symptoms Neurological: Reports: No Symptoms Psychiatric: Reports: No Symptoms ED EXAM, GENERAL - Physical Exam Exam: See Below Exam Limited By: No Limitations General Appearance: Alert, WD/WN, Mild Distress Eye Exam: Bilateral Eye: Normal Inspection Ears: Normal External Exam Ear Exam: Bilateral Ear: Auricle Normal Nose: Normal Inspection, Normal Mucosa, No Blood Throat/Mouth: Normal Inspection, Normal Lips, Normal Voice, No Airway Compromise Head: Atraumatic, Normocephalic Neck: Normal Inspection, Supple, Non-Tender, Full Range of Motion Respiratory/Chest: No Respiratory Distress, Lungs Clear Cardiovascular: Normal Peripheral Pulses Peripheral Pulses: 1+: Carotid (R) GI/Abdominal: Normal Bowel Sounds, Soft, Non-Tender, No Organomegaly, No Abnormal Bruit (Male) Exam: Deferred Rectal (Males) Exam: Deferred Back Exam: Normal Inspection, Full Range of Motion Extremities: Normal Inspection, Normal Range of Motion, Non-Tender, No Pedal Edema, Normal Capillary Refill Neurological: Alert, Oriented, CN II-XII Intact, Normal Cognition, Normal Gait Psychiatric: Normal Affect, Normal Mood Skin Exam: Warm, Dry, Intact, Normal Color, No Rash Lymphatic: No Adenopathy Course - Vital Signs Text/Narrative:: 46 y.o.w.m came to the ed by himself due to sudden onset of left sided chest discomfort while at work. Pt has a pneumothorax 1 year ago when a chest tube was placed. Pt was admitted for 3 days at that time. Pt quit smoking 18 years ago, his cousin had similar symptoms. No N/V/D or any other acute medical issues. BP 125/79 RR 20 Pulse ox 99% on RA Temp 37.4 PE: Decr. Breath sounds right lung. Imaging: Pneumothorax 30 % right lung Labs: CBC/BMP WNL Procedure: Heimlich Valve placed by Dr. Motta Impression: Pneumothorax Reexam: Improved Plan: Admit to [facility]. Last Recorded V/S: Last Vital Signs Temp 36.6 C 12/17/17 08:00 Pulse 67 12/17/17 08:00 Resp 18 12/17/17 08:00 BP 125/82 12/17/17 08:00 Pulse Ox 100 12/17/17 08:00 - Orders/Labs/Meds Labs: Laboratory Tests 12/14/17 12/14/17 12/14/17 Range/Units 07:25 07:25 07:25 WBC 5.6 (4.5-12.0) X10-3/uL RBC 5.53 (4.30-5.75) x10(6)uL Hgb 15.9 H (11.5-15.5) g/dL Hct 47.9 (30.0-51.3) % MCV 86.5 (80-96) fL MCH 28.7 (27.7-33.6) pg MCHC 33.1 (32.2-35.4) g/dL RDW 12.9 (11.5-15.5) % Plt Count 210 (125-369) X10(3)uL MPV 9.8 (7.4-10.4) fL Add Manual Diff Yes Neutrophils % (Manual) 63 (46-82) % Lymphocytes % (Manual) 24 (13-37) % Monocytes % (Manual) 9 (4-12) % Eosinophils % (Manual) 3 (0-5) % Basophils % (Manual) 1 (0-2) % PT 11.2 H (8.7-11.1) INR 1.11 (0.89-1.13) Sodium 139 (135-145) mmol/L Potassium 3.9 (3.5-5.3) mmol/L Chloride 103 (100-110) mmol/L Carbon Dioxide 28 (21-32) mmol/L BUN 17 (7-18) mg/dL Creatinine 1.3 (0.70-1.30) mg/dL Est Cr Clr Drug Dosing TNP Estimated GFR (MDRD) 59 L (>60) BUN/Creatinine Ratio 13.1 (9-20) Glucose 135 H (80-116) mg/dL Calcium 9.9 (8.6-10.2) mg/dL CK-MB (CK-2) (0.5-5.0) ng/mL Troponin I (<0.017-0.056) ng/mL 12/14/17 Range/Units 07:25 WBC (4.5-12.0) X10-3/uL RBC (4.30-5.75) x10(6)uL Hgb (11.5-15.5) g/dL Hct (30.0-51.3) % MCV (80-96) fL MCH (27.7-33.6) pg MCHC (32.2-35.4) g/dL RDW (11.5-15.5) % Plt Count (125-369) X10(3)uL MPV (7.4-10.4) fL Add Manual Diff Neutrophils % (Manual) (46-82) % Lymphocytes % (Manual) (13-37) % Monocytes % (Manual) (4-12) % Eosinophils % (Manual) (0-5) % Basophils % (Manual) (0-2) % PT (8.7-11.1) INR (0.89-1.13) Sodium (135-145) mmol/L Potassium (3.5-5.3) mmol/L Chloride (100-110) mmol/L Carbon Dioxide (21-32) mmol/L BUN (7-18) mg/dL Creatinine (0.70-1.30) mg/dL Est Cr Clr Drug Dosing Estimated GFR (MDRD) (>60) BUN/Creatinine Ratio (9-20) Glucose (80-116) mg/dL Calcium (8.6-10.2) mg/dL CK-MB (CK-2) 0.8 (0.5-5.0) ng/mL Troponin I < 0.017 L (<0.017-0.056) ng/mL Meds: Medications Discontinued Medications Generic Name Dose Route Start Last Admin Trade Name Freq PRN Reason Stop Dose Admin Hydrocodone Bitart/Acetaminophen 1 tab 12/14/17 17:10 12/15/17 09:17 [place] 325-5 Mg PO 1 tab Q4H PRN Administration Pain Hydrocodone Bitart/Acetaminophen 2 tab 12/14/17 17:13 [place] 325-5 Mg PO Q4H PRN Pain (moderate 4-6) Lactated Ringer's 1,000 mls @ 125 mls/hr 12/14/17 09:00 12/14/17 17:30 Ringers, Lactated IV 125 mls/hr ASDIRECTED [facility] Administration Morphine Sulfate 2 mg 12/14/17 08:49 12/14/17 13:19 Morphine IVPUSH 2 mg Q2H PRN Administration Pain (severe 7-10) Morphine Sulfate Confirm 12/14/17 08:57 12/14/17 09:27 Morphine Administered 12/14/17 08:58 Not Given Dose 2 mg .ROUTE .STK-MED ONE Ondansetron HCl Confirm 12/14/17 08:28 12/14/17 09:27 Zofran Administered 12/14/17 08:29 Not Given Dose 8 mg .ROUTE .STK-MED ONE Sodium Chloride 10 ml 12/14/17 08:49 12/14/17 19:11 Saline Flush FLUSH 10 ml ASDIRECTED PRN Administration Keep Vein Open Departure - Departure Time of Disposition: 10:00 Disposition: Refer to Observation Condition: Fair Clinical Impression: Pneumothorax Qualifiers: Pneumothorax type: spontaneous, secondary Qualified Code(s): J93.12 - Secondary spontaneous pneumothorax - Discharge Information
[2017-12-14] MEDS ORDERED: Ondansetron 4 MG/2 ML SDV ONE (08:28)
[2017-12-14] MEDS ORDERED: Sodium Chloride 0.9% 10 ML Syringe FLUSH PRN (08:49)
[2017-12-14] MEDS ORDERED: Morphine 2 MG/ML Syringe ONE (08:57)
[2017-12-14] MEDS: Morphine 2 MG/ML Syringe IVPUSH PRN ×3 (09:00→13:19)
[2017-12-14] MEDS: Lactated Ringers 1,000 ML IV SCH ×2 (09:30→17:30)
--- NOTE | 2017-12-14 16:26 | CR ---
INDICATION: Chest tube placement. CHEST: A single frontal view of the chest was obtained, revealing a chest tube in place in the right apical lung area. The pneumothorax seen earlier appears less prominent than on the previous study earlier in the same day, obtained at 0703 hours. Our current study is 0837 hours. No complicating process was identified. IMPRESSION: Chest tube in place. Pneumothorax decreased in size. Follow-up recommended. The percentage appears to be approximately 20-30. MTDD
[2017-12-14] MEDS ORDERED: Acetaminophen/HYDROcodone 325-5 MG Tab PO PRN (17:13)
[2017-12-14] MEDS: Acetaminophen/HYDROcodone 325-5 MG Tab PO PRN (17:27)
--- NOTE | 2017-12-15 00:14 | HP ---
ADMISSION DATE: 12/14/2017 HISTORY OF PRESENT ILLNESS: This 46-year-old male presented to the emergency room this morning with sudden onset of right-sided chest and back pain. This was associated with a mild degree of shortness of breath, but was not associated with any type of recent injury or unusual coughing. On evaluation in the emergency room, the patient was noted on chest x-ray to have a partial pneumothorax on the right side. It is significant to note that the patient did have a similar episode in the past approximately two years ago with chest tube having been placed at that time and patient was hospitalized for about 4 days for this problem. PAST MEDICAL HISTORY: Notes that he is generally healthy. MEDICATIONS: He does not take any routine prescription medications. PAST SURGICAL HISTORY: His only previous surgery was a cranial surgery after trauma years ago. ALLERGIES: He has no known drug allergies. SOCIAL HISTORY: He is a former smoker. FAMILY HISTORY: Negative for serious illnesses. He does note his cousin has had similar episodes of spontaneous pneumothorax and did require surgical treatment for this. SYSTEM REVIEW: Reveals that he has recently been feeling well. There has been no recent cough, cold, or sore throat symptoms. No other episodes of chest pain or palpitations. No difficulty breathing. Appetite has been satisfactory. Weight has been stable. No extremity complaints. PHYSICAL EXAMINATION: VITAL SIGNS: Temperature is 35.8, pulse 86, blood pressure is 127/82. GENERAL: The patient is an adult male who is currently in no acute distress. HEENT: Head is normocephalic. There is no scleral icterus. NECK: Supple. No cervical masses. No tracheal deviation. No cervical crepitus. HEART: Regular without murmur. LUNGS: Clear. There are slight decreased breath sounds on the right compared to the left. Chest wall is nontender. No palpable crepitus noted. ABDOMEN: Soft, nontender with no palpable mass. EXTREMITIES: Show no obvious deformity or edema. IMPRESSION: Recurrent right spontaneous pneumothorax. RECOMMENDATIONS: Chest tube will be placed in the right chest to relieve the right pneumothorax. It is expected that the patient will likely need cardiothoracic surgery referral because of the recurring nature of this problem and he may be considered for pleurodesis. /[id number] HAROON/LINDA
--- NOTE | 2017-12-15 01:34 | OR ---
DATE OF OPERATION: 12/14/2017 SURGEON: Juan Jose Motta MD PREOPERATIVE DIAGNOSIS: Right pneumothorax. POSTOPERATIVE DIAGNOSIS: Right pneumothorax. OPERATION PERFORMED: Insertion of right chest tube. INDICATIONS FOR SURGERY: This 46-year-old male presented to the emergency room with right chest pain. X-rays revealed a pneumothorax on the right and history is consistent with this being a spontaneous pneumothorax. Insertion of chest tube because of the pneumothorax is planned. PROCEDURE IN DETAIL: The patient's chest x-ray was reviewed, identifying significant right pneumothorax and a discussion was carried out with the patient regarding insertion of a right chest tube to be attached to a Heimlich valve. The procedure was reviewed with him and he agreed to proceed accepting risks. The right anterior chest was prepped, draped, and the right third intercostal space anteriorly was anesthetized with Xylocaine. A small incision was made in the skin and then using the catheter from the pneumothorax kit, the 8-Malay catheter was advanced over the inserting needle above the third rib on the right side into the right pleural space. The catheter is attached to a Heimlich valve, and once the catheter was in good position, the Heimlich valve visibly responded appropriately to the patient's breathing. A chest x-ray was obtained which showed the catheter in satisfactory position and decreasing size of the pneumothorax on the right. The catheter was then secured to the skin with the silk sutures from the kit, and with it remaining connected to the Heimlich valve, a sterile dressing was placed. The patient tolerated the procedure well. ESTIMATED BLOOD LOSS: Minimal. /[id number] HAROON/LINDA VAZQUEZ
--- NOTE | 2017-12-15 06:34 | PCM.PN ---
- General Info Date of Service: 12/15/17 Functional Status: Reports: Pain Controlled - Review of Systems Pulmonary: Denies: Shortness of Breath, Cough Gastrointestinal: Reports: No Symptoms - Patient Data Vitals - Most Recent: Last Vital Signs Temp 97.6 F 12/15/17 00:00 Pulse 60 12/15/17 00:00 Resp 17 12/15/17 00:00 BP 125/82 12/15/17 00:00 Pulse Ox 99 12/15/17 00:00 Weight - Most Recent: 186 lb 3.2 oz I&O - Last 24 Hours: Intake & Output 12/14/17 12/14/17 12/15/17 14:59 22:59 06:59 Intake Total 472 1148 Output Total 1500 1450 Balance -1028 -302 Med Orders - Current: Current Medications Hydrocodone Bitart/Acetaminophen ([place] 325-5 Mg) 1 tab PO Q4H PRN PRN Reason: Pain Last Admin: 12/14/17 17:27 Dose: 1 tab Hydrocodone Bitart/Acetaminophen ([place] 325-5 Mg) 2 tab PO Q4H PRN PRN Reason: Pain (moderate 4-6) Morphine Sulfate (Morphine) 2 mg IVPUSH Q2H PRN PRN Reason: Pain (severe 7-10) Last Admin: 12/14/17 13:19 Dose: 2 mg Sodium Chloride (Saline Flush) 10 ml FLUSH ASDIRECTED PRN PRN Reason: Keep Vein Open Last Admin: 12/14/17 19:11 Dose: 10 ml Discontinued Medications Lactated Ringer's (Ringers, Lactated) 1,000 mls @ 125 mls/hr IV ASDIRECTED SHERIF Last Admin: 12/14/17 17:30 Dose: 125 mls/hr Morphine Sulfate (Morphine) Confirm Administered Dose 2 mg .ROUTE .STK-MED ONE Stop: 12/14/17 08:58 Last Admin: 12/14/17 09:27 Dose: Not Given Ondansetron HCl (Zofran) Confirm Administered Dose 8 mg .ROUTE .STK-MED ONE Stop: 12/14/17 08:29 Last Admin: 12/14/17 09:27 Dose: Not Given - Exam General: Alert, Oriented Lungs: Clear to Auscultation, Normal Respiratory Effort, Other (Heimlich valve moving a small amount but appropriately) - Problem List Review Problem List Initiated/Reviewed/Updated: Yes - My Orders Last 24 Hours: My Active Orders 12/14/17 10:31 IS (RT) [RT Incentive Spirometry] [RC] ASDIRECTED 12/14/17 17:10 Acetaminophen/HYDROcodone [[place] 325-5 MG] 1 tab PO Q4H PRN 12/14/17 17:13 Acetaminophen/HYDROcodone [[place] 325-5 MG] 2 tab PO Q4H PRN 12/14/17 18:50 Convert IV to Saline Lock [OM.PC] Routine 12/15/17 08:00 CXR [Chest 2V] [CR] Routine - Assessment Assessment:: Spontaneous right pneumothorax which occurred yesterday - Plan Plan:: Will get cxr today and if lung inflated then will clamp chest tube
[2017-12-15] MEDS: Acetaminophen/HYDROcodone 325-5 MG Tab PO PRN (09:17)
--- NOTE | 2017-12-15 10:58 | CR ---
INDICATION: Follow-up right pneumothorax. CHEST: Two PA views and a lateral view of the chest were obtained 12/15/2017 and compared with 12/14/2017, again revealing a pneumothorax on the right, which appears diminished in percentage compared with the previous study. It appears to be approximately 15% at this time. The chest tube remains in place. There is less blunting of the right costophrenic angle than was present on the 12/14/2017, 0703 hours examination. There does appear to be increased blunting of the posterior sulci, however, suggesting bilateral small pleural effusions. No other acute process is suggested. MTDD
--- NOTE | 2017-12-15 21:01 | PCM.PN ---
- General Info Date of Service: 12/15/17 - Review of Systems General: Reports: No Symptoms Pulmonary: Reports: No Symptoms - Patient Data Vitals - Most Recent: Last Vital Signs Temp 97.9 F 12/15/17 20:00 Pulse 80 12/15/17 20:00 Resp 20 12/15/17 20:00 BP 128/80 12/15/17 20:00 Pulse Ox 98 12/15/17 20:00 Weight - Most Recent: 186 lb 3.2 oz Med Orders - Current: Current Medications Hydrocodone Bitart/Acetaminophen ([place] 325-5 Mg) 1 tab PO Q4H PRN PRN Reason: Pain Last Admin: 12/15/17 09:17 Dose: 1 tab Hydrocodone Bitart/Acetaminophen ([place] 325-5 Mg) 2 tab PO Q4H PRN PRN Reason: Pain (moderate 4-6) Morphine Sulfate (Morphine) 2 mg IVPUSH Q2H PRN PRN Reason: Pain (severe 7-10) Last Admin: 12/14/17 13:19 Dose: 2 mg Sodium Chloride (Saline Flush) 10 ml FLUSH ASDIRECTED PRN PRN Reason: Keep Vein Open Last Admin: 12/14/17 19:11 Dose: 10 ml Discontinued Medications Lactated Ringer's (Ringers, Lactated) 1,000 mls @ 125 mls/hr IV ASDIRECTED SHERIF Last Admin: 12/14/17 17:30 Dose: 125 mls/hr Morphine Sulfate (Morphine) Confirm Administered Dose 2 mg .ROUTE .STK-MED ONE Stop: 12/14/17 08:58 Last Admin: 12/14/17 09:27 Dose: Not Given Ondansetron HCl (Zofran) Confirm Administered Dose 8 mg .ROUTE .STK-MED ONE Stop: 12/14/17 08:29 Last Admin: 12/14/17 09:27 Dose: Not Given - Exam Lungs: Normal Respiratory Effort - Problem List Review Problem List Initiated/Reviewed/Updated: Yes - My Orders Last 24 Hours: My Active Orders 12/16/17 08:00 CXR [Chest 2V] [CR] Routine - Assessment Assessment:: Spontaneous right pneumothorax which occurred yesterday - Plan Plan:: CXR shows persistent but smaller pneumothorax. Will repeat chest xray in am.
--- NOTE | 2017-12-16 11:51 | CR ---
INDICATION: Followup right pneumothorax. CHEST: Inspiration, expiration PA views and lateral view of the chest 2017 were compared with 12/15/2017 and again revealed a minimal pneumothorax, perhaps 5%. Chest tube remains in place on the right also. No other change or new acute process was identified. IMPRESSION: 1. Stable or slightly decreased right pneumothorax between 5 and 10% on the right with right chest tube remaining in place. 2. A new acute process was not identified. Report was given by phone to Dr. Juan Jose Motta at approximately 1120 hours on 12/16/2017. TAYLOR
--- NOTE | 2017-12-16 18:41 | PCM.PN ---
- General Info Date of Service: 12/16/17 - Review of Systems Pulmonary: Reports: Other (More difficulty getting IS to the top after Chest Tube clamped earlier today). Denies: Pleuritic Chest Pain, Cough Systems Review Comment:: Chest Xray from 1700 (a few hours after chest tube clamped) reviewed and it shows redevelopment of Right Pneumothorax - Patient Data Vitals - Most Recent: Last Vital Signs Temp 97.8 F 12/16/17 16:00 Pulse 88 12/16/17 16:00 Resp 18 12/16/17 16:00 BP 141/89 H 12/16/17 16:00 Pulse Ox 100 12/16/17 16:00 Weight - Most Recent: 186 lb 3.2 oz I&O - Last 24 Hours: Intake & Output 12/16/17 12/16/17 12/16/17 06:59 14:59 22:59 Intake Total 100 Balance 100 Med Orders - Current: Current Medications Hydrocodone Bitart/Acetaminophen ([place] 325-5 Mg) 1 tab PO Q4H PRN PRN Reason: Pain Last Admin: 12/15/17 09:17 Dose: 1 tab Hydrocodone Bitart/Acetaminophen ([place] 325-5 Mg) 2 tab PO Q4H PRN PRN Reason: Pain (moderate 4-6) Morphine Sulfate (Morphine) 2 mg IVPUSH Q2H PRN PRN Reason: Pain (severe 7-10) Last Admin: 12/14/17 13:19 Dose: 2 mg Sodium Chloride (Saline Flush) 10 ml FLUSH ASDIRECTED PRN PRN Reason: Keep Vein Open Last Admin: 12/14/17 19:11 Dose: 10 ml Discontinued Medications Lactated Ringer's (Ringers, Lactated) 1,000 mls @ 125 mls/hr IV ASDIRECTED SHERIF Last Admin: 12/14/17 17:30 Dose: 125 mls/hr Morphine Sulfate (Morphine) Confirm Administered Dose 2 mg .ROUTE .STK-MED ONE Stop: 12/14/17 08:58 Last Admin: 12/14/17 09:27 Dose: Not Given Ondansetron HCl (Zofran) Confirm Administered Dose 8 mg .ROUTE .STK-MED ONE Stop: 12/14/17 08:29 Last Admin: 12/14/17 09:27 Dose: Not Given - Exam General: Alert, Oriented Lungs: Normal Respiratory Effort - Problem List Review Problem List Initiated/Reviewed/Updated: Yes - My Orders Last 24 Hours: My Active Orders 12/16/17 17:00 Chest 2V [CR] Routine - Assessment Assessment:: Spontaneous right pneumothorax which redeveloped after chest tube clamped - Plan Plan:: Chest Tube opened to Heimlich valve again Repeat Chest xray in am
[2017-12-17 09:46] VITALS: BP 125/82
--- NOTE | 2017-12-17 11:18 | PCM.PN ---
- General Info Date of Service: 12/17/17 Functional Status: Reports: Pain Controlled - Review of Systems Pulmonary: Reports: No Symptoms, Other (moderate intermittant back pain). Denies: Shortness of Breath Gastrointestinal: Reports: No Symptoms - Patient Data Vitals - Most Recent: Last Vital Signs Temp 97.8 F 12/17/17 08:00 Pulse 67 12/17/17 08:00 Resp 18 12/17/17 08:00 BP 125/82 12/17/17 08:00 Pulse Ox 100 12/17/17 08:00 Weight - Most Recent: 186 lb 3.2 oz I&O - Last 24 Hours: Intake & Output 12/16/17 12/17/17 12/17/17 22:59 06:59 14:59 Intake Total 200 Balance 200 Med Orders - Current: Current Medications Hydrocodone Bitart/Acetaminophen ([place] 325-5 Mg) 1 tab PO Q4H PRN PRN Reason: Pain Last Admin: 12/15/17 09:17 Dose: 1 tab Hydrocodone Bitart/Acetaminophen ([place] 325-5 Mg) 2 tab PO Q4H PRN PRN Reason: Pain (moderate 4-6) Morphine Sulfate (Morphine) 2 mg IVPUSH Q2H PRN PRN Reason: Pain (severe 7-10) Last Admin: 12/14/17 13:19 Dose: 2 mg Sodium Chloride (Saline Flush) 10 ml FLUSH ASDIRECTED PRN PRN Reason: Keep Vein Open Last Admin: 12/14/17 19:11 Dose: 10 ml Discontinued Medications Lactated Ringer's (Ringers, Lactated) 1,000 mls @ 125 mls/hr IV ASDIRECTED SHERIF Last Admin: 12/14/17 17:30 Dose: 125 mls/hr Morphine Sulfate (Morphine) Confirm Administered Dose 2 mg .ROUTE .STK-MED ONE Stop: 12/14/17 08:58 Last Admin: 12/14/17 09:27 Dose: Not Given Ondansetron HCl (Zofran) Confirm Administered Dose 8 mg .ROUTE .STK-MED ONE Stop: 12/14/17 08:29 Last Admin: 12/14/17 09:27 Dose: Not Given - Exam General: Alert, Oriented Lungs: Normal Respiratory Effort, Other (Heimich valve working well) Physical Findings Comments:: Chest xray shows much improvement but still small apical pneumothorax on the right side. - Problem List Review Problem List Initiated/Reviewed/Updated: Yes - My Orders Last 24 Hours: My Active Orders 12/16/17 17:00 Chest 2V [CR] Routine 12/17/17 08:00 Chest 2V [CR] Routine 12/17/17 11:15 Ready for Discharge [RC] PER UNIT ROUTINE - Assessment Assessment:: Spontaneous right pneumothorax with small continued air leak - Plan Plan:: Discharge with chest tube in place patient to follow up in 4 days in clinic with chest xray
--- NOTE | 2017-12-19 12:00 | CR ---
INDICATION: Lung inflation after clamping chest tube, chest tube turned 90 degrees at 12 oclock to clamp off per Dr. Motta request. CHEST: Three images in PA projection, inspiration and one expiration, revealed the chest tube on the right remaining in place, having been clamped. There is now a 60 to 70% pneumothorax on the right - a marked increase in severity compared with the unclamped view of the same date 7 hours previous. No other change or new acute process was seen. One expiration with the chest tube unclamped. The pneumothorax seen on the previous study has been markedly reduced with approximately 20% pneumothorax remaining. Minimal blunting of the costophrenic angle is noted on the right, suggesting a minimal pleural effusion. Fibrosis could also produce this appearance. No other change or new acute process was seen. IMPRESSION: Right lung has reinflated to approximately 80% with 20% pneumothorax now seen. MTDD
== END 2017-12-17 11:55 | disposition home or self-care (01) ==
LOC: FB.ED 06:36 → FB.MS 07:35
PROVIDERS: ADMIT Surgery; ATTEND Surgery
DX: J93.83 Other pneumothorax (principal); Z87.891 Personal history of nicotine dependence; Z79.899 Other long term (current) drug therapy
CPT/HCPCS: 32551; 32554; 36415; 71045; 71046; 80048; 82553; 84484; 85025; 85610; 94150; 96374; 99285; A9270; J2270; J7050; J7120

== ENCOUNTER 2018-01-21 10:23 | Emergency (ER) | payer MEDICAID ==
--- NOTE | 2018-01-21 11:11 | EDM.PDOC ---
ED HPI GENERAL MEDICAL PROBLEM - General Stated Complaint: POSSIBLE COLLAPSED LUNG Time Seen by Provider: 01/21/18 10:23 Source of Information: Reports: Patient, Family History Limitations: Reports: No Limitations - History of Present Illness INITIAL COMMENTS - FREE TEXT/NARRATIVE: 47 y.o.w.m with a h/o spontaneous pneumothorax came to the ed with his SO due to pain at his right chest wall with deep inspirations feels like he has "another Pneumo" Pt had a righ sided pneumothorax a few weeks ago and a year ago. No SOB No CP no other constitutional or acute medical issues. BP 124/73 RR 18 Pulse ox 98% Temp 36.9 Pulse 100. Onset Date: 01/21/18 Onset Time: 10:00 Duration: Hour(s): Location: Reports: Chest Quality: Reports: Ache, Burning, Dull Severity: Mild Improves with: Reports: Rest Worsens with: Reports: Movement Context: Reports: Other (H/O spontaneous pneumothorax) Associated Symptoms: Reports: Other (pleuritic C/P) - Related Data Allergies Allergy/AdvReac Type Severity Reaction Status Date / Time No Known Allergies Allergy Verified 01/21/18 11:12 Home Meds: Home Meds Multivitamin [Multivitamins] 1 each PO DAILY 12/29/16 [History] Past Medical History - Past Health History Medical/Surgical History: Denies Medical/Surgical History Other HEENT History: glasses Respiratory History: Reports: Pneumothorax Other Respiratory History: current and one last year Dermatologic History: Reports: Eczema - Infectious Disease History Infectious Disease History: Reports: Mononucleosis - Past Surgical History Respiratory Surgical History: Reports: Other (See Below) Other Respiratory Surgeries/Procedures: Past history of chest tube placement. Neurological Surgical History: Reports: Other (See Below) Other Neurological Surgeries/Procedures: Past history of head surgery after being kicked by a horse. Social & Family History - Family History Family Medical History: Noncontributory - Tobacco Use Smoking Status *Q: Former Smoker Years of Tobacco use: 10 Used Tobacco, but Quit: No Month/Year Tobacco Last Used: November Second Hand Smoke Exposure: No - Caffeine Use Caffeine Use: Reports: Coffee Other Caffeine Use: daily cup - Recreational Drug Use Recreational Drug Use: No ED ROS GENERAL - Review of Systems Review Of Systems: See Below Constitutional: Reports: No Symptoms HEENT: Reports: No Symptoms Respiratory: Reports: Pleuritic Chest Pain Cardiovascular: Reports: No Symptoms Endocrine: Reports: No Symptoms GI/Abdominal: Reports: No Symptoms : Reports: No Symptoms Musculoskeletal: Reports: No Symptoms Skin: Reports: No Symptoms Neurological: Reports: No Symptoms Psychiatric: Reports: No Symptoms Hematologic/Lymphatic: Reports: No Symptoms Immunologic: Reports: No Symptoms ED EXAM, GENERAL - Physical Exam Exam: See Below Exam Limited By: No Limitations General Appearance: Alert, WD/WN, Mild Distress Eye Exam: Bilateral Eye: Normal Inspection Ears: Normal External Exam Ear Exam: Bilateral Ear: Auricle Normal Nose: Normal Inspection, Normal Mucosa, No Blood Throat/Mouth: Normal Inspection, Normal Lips Head: Atraumatic, Normocephalic Neck: Normal Inspection, Supple, Non-Tender, Full Range of Motion Respiratory/Chest: No Respiratory Distress, Lungs Clear, Normal Breath Sounds Cardiovascular: Normal Peripheral Pulses, Regular Rate, Rhythm, No Edema, No Gallop, No Rub Peripheral Pulses: 2+: Brachial (L) GI/Abdominal: Normal Bowel Sounds, Soft, Non-Tender, No Organomegaly, No Abnormal Bruit, No Mass (Male) Exam: Deferred Rectal (Males) Exam: Deferred Back Exam: Normal Inspection, Full Range of Motion Extremities: Normal Inspection, Normal Range of Motion, Non-Tender, No Pedal Edema, Normal Capillary Refill Neurological: Alert, Oriented, CN II-XII Intact, Normal Cognition, Normal Gait, No Motor/Sensory Deficits Psychiatric: Normal Affect, Normal Mood Skin Exam: Warm, Dry, Intact, Normal Color, No Rash Lymphatic: No Adenopathy Course - Vital Signs Text/Narrative:: 47 y.o.w.m with a h/o spontaneous pneumothorax came to the ed with his SO due to pain at his right chest wall with deep inspirations feels like he has "another Pneumo" Pt had a righ sided pneumothorax a few weeks ago and a year ago. No SOB No CP no other constitutional or acute medical issues. BP 124/73 RR 18 Pulse ox 98% Temp 36.9 Pulse 100. PE: 47 y.o.w.m with Pleuritic Chest pain Imaging: CXR: NAD Impression: Pleuritic chest pain Tx: None Plan: D/C with instructions Last Recorded V/S: Last Vital Signs Temp 36.8 C 01/21/18 10:23 Pulse 78 01/21/18 11:30 Resp 18 01/21/18 11:30 BP 132/86 01/21/18 11:30 Pulse Ox 98 01/21/18 11:30 - Orders/Labs/Meds Orders: Active Orders 24 hr Category Date Time Status CXR [Chest 2V] [CR] Stat Exams 01/21/18 10:29 Taken Departure - Departure Time of Disposition: 11:10 Disposition: Home, Self-Care 01 Condition: Good Clinical Impression: H/O pneumothorax - Discharge Information Instructions: Pneumothorax Referrals: Aditi Friend MD [Primary Care Provider] - Forms: ED Department Discharge Additional Instructions: Please f/u as scheduled, please come back to the ED should your symptoms get worse acutely - My Orders Last 24 Hours: My Active Orders 01/21/18 10:29 CXR [Chest 2V] [CR] Stat - Assessment/Plan Last 24 Hours: My Active Orders 01/21/18 10:29 CXR [Chest 2V] [CR] Stat
[2018-01-21 13:37] VITALS: BP 132/86
== END 2018-01-21 11:35 | disposition home or self-care (01) ==
LOC: FB.ED 10:23
DX: R07.89 Other chest pain (principal); Z87.09 Personal history of other diseases of the respiratory system; Z87.891 Personal history of nicotine dependence; Z79.899 Other long term (current) drug therapy
CPT/HCPCS: 71046; 99283

== ENCOUNTER 2019-07-12 06:48 | Day surgery (SDC) | payer MEDICAID ==
[~2019-07-12 06:48] MED LIST: Lactated Ringers 1,000 ML IV SCH; Sodium Chloride 0.9% 10 ML Syringe FLUSH PRN
[2019-07-12] MEDS ORDERED: Propofol 200 MG/20 ML SDV IV ONE (06:49)
[2019-07-12] MEDS ORDERED: Lidocaine 2% 5 ML SDV INJECT ONE (06:49)
--- NOTE | 2019-07-12 07:36 | PCM.HP.2 ---
H&P History of Present Illness - General Date of Service: 07/12/19 Admit Problem/Dx: Admission Diagnosis/Problem Admission Diagnosis/Problem Colonoscopy - History of Present Illness Initial Comments - Free Text/Narative: Pt for a screening c scope. This is his first. No issues or family history. - Related Data Allergies/Adverse Reactions: Allergies Allergy/AdvReac Type Severity Reaction Status Date / Time No Known Allergies Allergy Verified 07/12/19 07:08 Home Medications: Home Meds Multivitamin [Multivitamins] 1 each PO DAILY 12/29/16 [History] Horse Til[place]man Seed [Horse T[place]man] 300 mg PO BID PRN 07/11/19 [History] Ketotifen [Ketotifen 0.025% Ophth Soln] 1 drop .XX BID PRN 07/11/19 [History] Past Medical History - Past Health History Medical/Surgical History: Denies Medical/Surgical History Other HEENT History: ASTIGMATISM, HYPEROPIA,BYOPIA Respiratory History: Reports: Pneumothorax Other Respiratory History: current and one last year Gastrointestinal History: Reports: GERD Neurological History: Reports: Concussion Dermatologic History: Reports: Eczema - Infectious Disease History Infectious Disease History: Reports: Chicken Pox, Mononucleosis - Past Surgical History HEENT Surgical History: Reports: None Respiratory Surgical History: Reports: Other (See Below) Other Respiratory Surgeries/Procedures: Past history of chest tube placement. Had telk pleuradesis January 2018. GI Surgical History: Reports: Hernia Repair/Other Other GI Surgeries/Procedures: SHAKEEL HERNIA REPAIR Male Surgical History: Reports: Vasectomy Neurological Surgical History: Reports: Other (See Below) Other Neurological Surgeries/Procedures: Past history of head surgery after being kicked by a horse. Social & Family History - Family History Family Medical History: Noncontributory - Tobacco Use Smoking Status *Q: Former Smoker Years of Tobacco use: 10 - Caffeine Use Caffeine Use: Reports: Coffee, Soda Other Caffeine Use: daily cup - Recreational Drug Use Recreational Drug Use: No Drug Use in Last 12 Months: No H&P Review of Systems - Review of Systems: Review Of Systems: See Below General: Reports: No Symptoms HEENT: Reports: No Symptoms Pulmonary: Reports: No Symptoms Cardiovascular: Reports: No Symptoms Gastrointestinal: Reports: No Symptoms Exam - Exam Exam: See Below - Vital Signs Vital Signs: Last Vital Signs Temp 98.4 F 07/12/19 07:13 Pulse 72 09/19/19 07:13 Resp 17 07/12/19 07:13 BP 145/84 H 07/12/19 07:13 Pulse Ox 100 07/12/19 07:13 Weight: 89.811 kg - Exam General: Alert, Oriented, Cooperative Lungs: Clear to Auscultation, Normal Respiratory Effort Cardiovascular: Regular Rate, Regular Rhythm GI/Abdominal Exam: Normal Bowel Sounds, Soft, Non-Tender Skin: Warm, Dry, Intact *Q Meaningful Use (ADM) - VTE *Q VTE Pharmacological Contraindications *Q: Patient Scheduled Surgery - Problem List (1) Screening for colon cancer SNOMED Code(s): 575776631, [id number] ICD Code: Z12.11 - ENCOUNTER FOR SCREENING FOR MALIGNANT NEOPLASM OF COLON Status: Acute Current Visit: Yes Problem List Initiated/Reviewed/Updated: Yes Orders Last 24hrs: Active Orders 24 hr Category Date Time Status Patient Status [ADT] Routine ADT 07/12/19 06:45 Ordered Patient to Empty Bladder [RC] ASDIRECTED Care 07/12/19 06:45 Active Verify Patient Consent Obtain [RC] ASDIRECTED Care 07/12/19 06:45 Active Nothing Per Oral Diet [DIET] Diet 07/11/19 Dinner Ordered Lactated Ringers [Ringers, Lactated] 1,000 ml Med 07/12/19 06:45 Active IV ASDIRECTED Sodium Chloride 0.9% [Saline Flush] Med 07/12/19 06:45 Active 10 ml FLUSH ASDIRECTED PRN Peripheral IV Insertion Adult [OM.PC] Routine Oth 07/12/19 06:45 Ordered Resuscitation Status Routine Resus Stat 07/11/19 09:03 Ordered Medication Orders Lactated Ringer's (Ringers, Lactated) 1,000 mls @ 125 mls/hr IV ASDIRECTED SHERIF Sodium Chloride (Saline Flush) 10 ml FLUSH ASDIRECTED PRN PRN Reason: Keep Vein Open Assessment/Plan Comment:: Procedure and risks of c scope explained to the pt to include bleeding, perforation and infection. He asks us to proceed and expressed understanding.
--- NOTE | 2019-07-12 08:16 | PCM.OPNOTE ---
- General Post-Op/Procedure Note Date of Surgery/Procedure: 07/12/19 Operative Procedure(s): c scope Findings: no abnl Pre Op Diagnosis: screening Post-Op Diagnosis: nl study Anesthesia Technique: MAC Primary Surgeon: Shashi Keller Anesthesia Provider: Shaun Newsome Pathology: none Complications: None Condition: Good Free Text/Narrative:: see dictation
[2019-07-12 09:07] VITALS: BP 120/74; PULSE 64
--- NOTE | 2019-07-12 14:15 | OR ---
DATE OF OPERATION: 07/12/2019 SURGEON: Shashi Keller MD PROCEDURE PERFORMED: Colonoscopy. PREOPERATIVE DIAGNOSIS: Need for screening C-scope. POSTOPERATIVE DIAGNOSIS: Normal exam. INDICATIONS FOR PROCEDURE: This is a 48-year-old white male, presents for his initial screening colonoscopy. He was offered and accepted same. DESCRIPTION OF OPERATION: After an excellent IV sedation was administered, digital rectal exam was performed. No marked abnormality was noted. Flexible colonoscope was inserted and advanced to the cecum. Prep was excellent. Following findings were noted. Ascending colon, unremarkable. Transverse colon, unremarkable. Descending colon, unremarkable. Sigmoid and rectum, unremarkable. RECOMMENDATIONS: Repeat colonoscopy in 10 years. /[id number] 1400 /MODL
== END 2019-07-12 09:07 | disposition home or self-care (01) ==
LOC: FB.SDS 06:48
PROVIDERS: ATTEND Surgery
DX: Z12.11 Encounter for screening for malignant neoplasm of colon (principal); K21.9 Gastro-esophageal reflux disease without esophagitis; Z87.891 Personal history of nicotine dependence
CPT/HCPCS: 45378; J2001; J2704; J7120

== ENCOUNTER 2023-02-03 19:43 | Emergency (ER) | payer BC, MEDICAID ==
[2023-02-03 20:22] LABS: ESTIMATED GFR 80 mL/min (>60)
[2023-02-03 21:42] VITALS: BP 139/88; PULSE 65
== END 2023-02-03 20:55 | disposition home or self-care (01) ==
LOC: FB.ED 19:43
DX: R07.1 Chest pain on breathing (principal)
CPT/HCPCS: 36415; 71046; 80048; 84484; 85025; 85379; 93005; 99285

== ENCOUNTER 2025-07-29 09:28 | Day surgery (SDC) | payer BC, MEDICAID ==
[2025-07-29] MEDS ORDERED: Ondansetron 4 MG/2 ML SDV IVPUSH ONE (09:29)
[2025-07-29] MEDS ORDERED: fentaNYL 100 MCG/2 ML SDV IV ONE (09:29)
[2025-07-29] MEDS ORDERED: Ketorolac 30 MG/ML SDV IVPUSH ONE (09:29)
[2025-07-29] MEDS ORDERED: Dexamethasone 4 MG/ML 5 ML MDV IVPUSH ONE (09:29)
[2025-07-29] MEDS ORDERED: Midazolam 1 MG/ML 2 ML SDV IV ONE (09:29)
[2025-07-29] MEDS ORDERED: HYDROmorphone 2 MG/ML SDV IV ONE (09:29)
[2025-07-29] MEDS ORDERED: Propofol 200 MG/20 ML SDV IV ONE (09:29)
[2025-07-29] MEDS ORDERED: Sodium Chloride 0.9% 10 ML Syringe FLUSH PRN (09:30)
[2025-07-29] MEDS: Lactated Ringers 1,000 ML IV SCH (10:23)
[2025-07-29 10:28] VITALS: BP 128/83; PULSE 69
== END 2025-07-29 13:19 | disposition home or self-care (01) ==
LOC: FB.SDS 09:28
PROVIDERS: ATTEND Surgery
DX: K40.31 Unilateral inguinal hernia, with obstruction, without gangrene, recurrent (principal); I10 Essential (primary) hypertension
CPT/HCPCS: 49521; C1781; J0665; J0690; J1100; J1171; J1885; J2003; J2250; J2405; J2704; J3010; J7120; 00830